=== PATIENT | female | born 1995 | race Caucasian/White ===

== ENCOUNTER 2018-11-22 13:50 | Inpatient (IN) ==
[2018-11-22 17:54] LABS: URINE SOURCE CLEAN CATCH
[2018-11-22] MEDS ORDERED: SINEMET 25/100 PO PRN (18:04)
[2018-11-22] MEDS ORDERED: ZOFRAN IV PRN (18:04)
[2018-11-22] MEDS ORDERED: DESYREL PO PRN (18:04)
[2018-11-22] MEDS ORDERED: TYLENOL PO PRN (18:04)
[2018-11-22] MEDS ORDERED: IMODIUM PO PRN (18:04)
[2018-11-22] MEDS ORDERED: LIBRIUM PO PRN (18:04)
[2018-11-22] MEDS ORDERED: PHENOBARBITAL IV PRN (18:04)
[2018-11-22] MEDS ORDERED: ATARAX PO PRN (18:04)
[2018-11-22] MEDS ORDERED: D5W 1,000 ML IV PRN (18:04)
[2018-11-22] MEDS ORDERED: SENOKOT PO PRN (18:04)
[2018-11-22] MEDS ORDERED: BENTYL PO PRN (18:04)
[2018-11-22] MEDS ORDERED: MOTRIN PO PRN (18:04)
[2018-11-22] MEDS ORDERED: TUBERSOL ID ONE (18:04)
[2018-11-22] MEDS ORDERED: NICODERM PATCH TD PRN (18:04)
[2018-11-22] MEDS ORDERED: ZOFRAN ODT PO PRN (18:04)
[2018-11-22] MEDS ORDERED: ROBAXIN PO PRN (18:04)
[2018-11-22] MEDS ORDERED: MAALOX PLUS LIQUID PO PRN (18:04)
[2018-11-22] MEDS ORDERED: DULCOLAX PR PRN (18:04)
[2018-11-22 18:26] LABS: UR BARBITUATES QUAL PRESUMPTIVE POSITIVE (NONE DETECT); UR BENZODIAZEPIN QUAL PRESUMPTIVE POSITIVE (NONE DETECT); UR CANNABINOIDS QUAL PRESUMPTIVE POSITIVE (NONE DETECT); UR COCAINE QUAL PRESUMPTIVE POSITIVE (NONE DETECT); UR OPIATES QUAL PRESUMPTIVE POSITIVE (NONE DETECT)
[2018-11-22 18:27] LABS: UR AMPHETAMINES QUAL NONE DETECTED (NONE DETECT); UR METHADONE QUAL NONE DETECTED (NONE DETECT); UR METHAMPHETAMINE QUAL NONE DETECTED (NONE DETECT); UR OXYCODONE QUAL NONE DETECTED (NONE DETECT); UR PCP QUAL NONE DETECTED (NONE DETECT); UR PROPOXYPHENE QUAL NONE DETECTED (NONE DETECT); UR TCA QUAL NONE DETECTED (NONE DETECT)
[2018-11-22 18:43] LABS: BILIRUBIN URINE NEGATIVE (NEGATIVE); BLOOD URINE NEGATIVE (NEGATIVE); CLARITY VERY CLOUDY (CLEAR); COLOR YELLOW; GLUCOSE URINE NEGATIVE (NEGATIVE); KETONE URINE NEGATIVE (NEGATIVE); LEUKOCYTES URINE 1+ (NEGATIVE); NITRITE URINE POSITIVE (NEGATIVE); PH URINE 6.5; PROTEIN URINE NEGATIVE (NEGATIVE); UROBILINOGEN URINE NORMAL
[2018-11-22 18:56] LABS: URINE BACTERIA 4+ /HFP; URINE CAST NONE SEEN /LPF; URINE CRYSTAL NONE SEEN /HPF; URINE EPITHELIAL CELLS >10 /HPF (<10); URINE YEAST NONE SEEN /HPF
[2018-11-22] MEDS ORDERED: M.V.I.-12 10 ML, FOLIC ACID 1 MG, MAGNESIUM SULFATE 1 GM, THIAMINE 100 MG in NS 1,000 ML IV ONE (19:00)
[2018-11-22 19:12] LABS: HEMATOCRIT 37.8 % (37.0-47.0); HEMOGLOBIN 12.1 g/dL (12.0-16.0); MCH 26.3 PG (27-31); MCV 82.2 FL (81-99); MPV 12.2 FL (7.4-10.4); RBC 4.6 XMIL (4.2-5.4); RDW 14.7 % (11.5-14.5); WBC 8.6 X1000 (4.8-10.8)
[2018-11-22 19:29] LABS: INR 0.9; PROTIME 12.6 Seconds (11.0-16.0)
[2018-11-22 19:30] LABS: AMYLASE 23 U/L (20-200); LIPASE 22 U/L (13-60)
[2018-11-22 19:36] LABS: AGAP 10; ALBUMIN 3.5 g/dL (3.5-5.0); ALKALINE PHOSPHATASE 92 U/L (32-104); BUN 8 mg/dL (8-22); CALCIUM 9.3 mg/dL (8.8-10.2); CHLORIDE 105 mmol/L (98-107); COSMO 282; CREATININE 0.7 mg/dL (0.5-0.9); ESTIMATED GFR > 60; GLUCOSE 103 mg/dL (70-104); GOT 13 U/L (10-30); GPT 10 U/L (10-36); SODIUM 142 mmol/L (136-145); TCO2 27 mmol/L (25-35); TOTAL BILIRUBIN < 0.15 mg/dL (0.20-1.00); TOTAL PROTEIN 7.6 g/dL (6.3-8.3)
[2018-11-22] MEDS ORDERED: SUBOXONE 2 MG/0.5 MG FILM SL SCH (20:00)
[2018-11-22] MEDS: SEROQUEL PO PRN (21:30)
--- NOTE | 2018-11-23 00:38 | HISTORY AND PHYSICAL ---
CHIEF COMPLAINT: Nausea, vomiting. HISTORY OF PRESENT ILLNESS: Patient is a 22-year-old female who presented to the [facility] [place] [facility] with nausea, vomiting, abdominal pain, myalgias. Notes that she has been abusing opiates. She has been trying to stop, symptoms become too severe. PAST MEDICAL HISTORY: Significant for chronic anxiety, depression, chronic neuropathy with restless leg. ALLERGIES: No known drug allergies. MEDICATIONS: Klonopin 0.5 mg daily p.r.n., gabapentin 600 mg 3 times daily. FAMILY HISTORY: Noncontributory. REVIEW OF SYSTEMS: CINA score is 13 secondary to nausea, vomiting, diaphoresis, myalgias, restless legs, temperature changes, abdominal cramping, diarrhea. Denies constipation, melena, hematochezia. Denies any fevers or chills. Denies dysuria, urinary frequency, urgency, hesitancy. SOCIAL HISTORY: Patient is single. She is unemployed. Lives at home [*] SUBSTANCE ABUSE HISTORY: Patient was in recovery in 2018. Started marijuana at age 12, currently smokes every day or 2. Started depressants 2 years ago, has been taking as prescribed. Started smoking at age 12, currently smokes a pack a day. Started opiates at age 21, currently using heroin and snorting oxycodone everyday. PHYSICAL EXAMINATION: VITAL SIGNS: Reviewed and stable. GENERAL: Patient is awake, alert, oriented. Currently in no respiratory distress. HEENT: Normocephalic. NECK: Supple. CARDIOVASCULAR: Regular rate. No murmurs. CHEST: Clear and nonlabored. ABDOMEN: Soft, nondistended. EXTREMITIES: Moves all extremities. NEUROLOGIC: No focal changes. SKIN: Warm, dry. No rashes. ASSESSMENT: 1. Nausea and vomiting. 2. Abdominal pain. 3. Myalgias. 4. Paresthesias. 5. Paroxysmal sweating. 6. Opiate abuse, withdrawal and stabilization. PLAN: We will continue patient in the hospital. Continue counseling. Place on Suboxone. Further orders as needed. cc: Francois Griffith MD
[2018-11-23] MEDS: PROTONIX PO SCH (06:24)
[2018-11-23] MEDS: THERA M PLUS PO SCH (08:42)
[2018-11-23] MEDS: FOLIC ACID PO SCH (08:42)
[2018-11-23] MEDS: VITAMIN B-1 PO SCH (08:42)
--- NOTE | 2018-11-23 15:15 | PROGRESS NOTE ---
DATE: 11/23/2018 SUBJECTIVE: The patient overall notes that she is feeling a little bit better, still having muscle aches, still is not back to her baseline. OBJECTIVE: She is afebrile. Temperature 97.6 degrees, pulse 64, respiratory rate 20, blood pressure 124/72.General: The patient is awake and alert. She is pleasant to talk with. HEENT: Normocephalic. Neck: Supple. CARDIOVASCULAR: Regular rate. No murmurs. Chest: Clear and nonlabored. Abdomen: Soft. Extremities: Moves all extremities. Neurologic: No changes. ASSESSMENT: 1. Nausea and vomiting. 2. Abdominal pain. 3. Myalgias. 4. Paresthesias. 5. Paroxysmal sweating. 6. Opiate abuse withdrawal and stabilization. PLAN: Will continue Suboxone. Will taper as tolerated. It is possible that she has a urinary tract infection. We have sent for a culture and will treat if positive. cc: Francois Griffith MD
[2018-11-23] MEDS: SUBOXONE 2 MG/0.5 MG FILM SL SCH (19:45)
[2018-11-23] MEDS: SEROQUEL PO PRN (19:46)
[2018-11-24] MEDS: PROTONIX PO SCH (06:35)
[2018-11-24 08:04] VITALS: BP 111/72
[2018-11-24] MEDS: SUBOXONE 2 MG/0.5 MG FILM SL SCH (08:48)
[2018-11-24] MEDS: THERA M PLUS PO SCH (08:49)
[2018-11-24] MEDS: VITAMIN B-1 PO SCH (08:49)
[2018-11-24] MEDS: FOLIC ACID PO SCH (08:49)
[2018-11-24] MEDS ORDERED: SUBOXONE 2 MG/0.5 MG FILM SL SCH (21:00)
--- NOTE | 2018-11-25 02:22 | DISCHARGE SUMMARY ---
ADMISSION DATE: 11/22/2018 DISCHARGE DATE: 11/24/2018 DISCHARGE DIAGNOSIS: 1. Nausea, vomiting. 2. Abdominal pain. 3. Myalgias. 4. Paresthesias. 5. Paroxysmal sweating. 6. Substance use and abuse. 7. Chronic anxiety, depression. CONSULTATIONS: None. PROCEDURES: None. BRIEF HOSPITAL COURSE: Patient is a 22-year-old female who presented to [facility] program secondary to nausea, vomiting, abdominal pain, myalgias, tremors, opiate abuse and withdrawal. The patient was admitted to the hospital, treated in the usual fashion, placed on symptomatic medications as well as Suboxone. Thankfully, on discharge she has had no further complications. She has tolerated the 4 mg Suboxone quite well. DISPOSITION: Patient will be discharged home. Discussed with her the importance of trying to stay as low on Suboxone as possible. Currently, she is tolerating 4 mg twice daily. We will continue this at home. Discussed with patient that she needs to avoid all persons, places and situations which she has been using and abusing in the past. She needs outpatient life counseling as well as drug counseling. Greater than 30 minutes was spent in total care. cc: Francois Griffith MD
== END 2018-11-24 13:15 | disposition home or self-care (01) | DRG 897 ==
LOC: P.DIRADM 16:09 → P.MEDSURG 16:44
PROVIDERS: ADMIT Family Medicine; ATTEND Family Medicine
CPT/HCPCS: 80053; 80104; 80301; 80305; 80307; 80320; 81001; 82055; 82150; 83690; 84703; 85027; 85610; 87077; 87088; 87186; A9270; G0431; G0434; G0477; G0480; G6040; J3411; J3475; J7030

== ENCOUNTER 2018-12-10 15:40 | Inpatient (IN) ==
[2018-12-10] MEDS ORDERED: MAALOX PLUS LIQUID PO PRN (15:47)
[2018-12-10] MEDS ORDERED: LIBRIUM PO PRN (15:47)
[2018-12-10] MEDS ORDERED: SENOKOT PO PRN (15:47)
[2018-12-10] MEDS ORDERED: BENTYL PO PRN (15:47)
[2018-12-10] MEDS ORDERED: DESYREL PO PRN (15:47)
[2018-12-10] MEDS ORDERED: ATARAX PO PRN (15:47)
[2018-12-10] MEDS ORDERED: ZOFRAN IV PRN (15:47)
[2018-12-10] MEDS ORDERED: TYLENOL PO PRN (15:47)
[2018-12-10] MEDS ORDERED: MOTRIN PO PRN (15:47)
[2018-12-10] MEDS ORDERED: DULCOLAX PR PRN (15:47)
[2018-12-10] MEDS ORDERED: NICODERM PATCH TD PRN (15:47)
[2018-12-10] MEDS ORDERED: IMODIUM PO PRN (15:47)
[2018-12-10] MEDS ORDERED: D5W 1,000 ML IV PRN (15:47)
[2018-12-10] MEDS ORDERED: PHENOBARBITAL IV PRN (15:47)
[2018-12-10] MEDS ORDERED: SINEMET 25/100 PO PRN (15:47)
[2018-12-10] MEDS ORDERED: ZOFRAN ODT PO PRN (15:47)
[2018-12-10] MEDS ORDERED: TUBERSOL ID ONE (17:00)
[2018-12-10 18:49] LABS: HEMATOCRIT 36.4 % (37.0-47.0); HEMOGLOBIN 11.5 g/dL (12.0-16.0); MCHC 31.6 g/dL (33-37); MCV 82.2 FL (81-99); MPV 11.5 FL (7.4-10.4); RBC 4.43 XMIL (4.2-5.4); RDW 14.1 % (11.5-14.5); WBC 8.53 X1000 (4.8-10.8)
[2018-12-10 19:03] LABS: INR 0.89; PROTIME 12.5 Seconds (11.0-16.0)
[2018-12-10 19:13] LABS: AMYLASE 25 U/L (20-200); LIPASE 32 U/L (13-60)
[2018-12-10 19:36] LABS: AGAP 9; ALBUMIN 3.6 g/dL (3.5-5.0); ALKALINE PHOSPHATASE 89 U/L (32-104); BUN 11 mg/dL (8-22); CALCIUM 9.2 mg/dL (8.8-10.2); CHLORIDE 103 mmol/L (98-107); COSMO 278; CREATININE 0.7 mg/dL (0.5-0.9); ESTIMATED GFR > 60; GLUCOSE 92 mg/dL (70-104); GOT 13 U/L (10-30); GPT 10 U/L (10-36); POTASSIUM 3.8 mmol/L (3.5-5.1); SODIUM 140 mmol/L (136-145); TCO2 28 mmol/L (25-35); TOTAL BILIRUBIN < 0.15 mg/dL (0.20-1.00); TOTAL PROTEIN 7.1 g/dL (6.3-8.3)
[2018-12-10] MEDS: SUBOXONE 2 MG/0.5 MG FILM SL SCH (19:45)
[2018-12-10 23:10] LABS: URINE SOURCE VOIDED
[2018-12-10 23:18] LABS: BILIRUBIN URINE NEGATIVE (NEGATIVE); BLOOD URINE NEGATIVE (NEGATIVE); CLARITY SL. CLOUDY (CLEAR); COLOR YELLOW; GLUCOSE URINE NEGATIVE (NEGATIVE); KETONE URINE NEGATIVE (NEGATIVE); LEUKOCYTES URINE NEGATIVE (NEGATIVE); NITRITE URINE NEGATIVE (NEGATIVE); PROTEIN URINE NEGATIVE (NEGATIVE); SP GRAVITY URINE 1.015; UROBILINOGEN URINE NORMAL
[2018-12-10 23:29] LABS: UR AMPHETAMINES QUAL NONE DETECTED (NONE DETECT); UR BARBITUATES QUAL NONE DETECTED (NONE DETECT); UR BENZODIAZEPIN QUAL PRESUMPTIVE POSITIVE (NONE DETECT); UR CANNABINOIDS QUAL PRESUMPTIVE POSITIVE (NONE DETECT); UR COCAINE QUAL PRESUMPTIVE POSITIVE (NONE DETECT); UR METHADONE QUAL NONE DETECTED (NONE DETECT); UR METHAMPHETAMINE QUAL NONE DETECTED (NONE DETECT); UR OPIATES QUAL NONE DETECTED (NONE DETECT); UR OXYCODONE QUAL NONE DETECTED (NONE DETECT); UR PCP QUAL NONE DETECTED (NONE DETECT); UR PROPOXYPHENE QUAL NONE DETECTED (NONE DETECT); UR TCA QUAL NONE DETECTED (NONE DETECT)
[2018-12-10 23:34] LABS: URINE BACTERIA 4+ /HFP; URINE EPITHELIAL CELLS >10 /HPF (<10); URINE RBC <10 /HPF (<10)
[2018-12-11] MEDS: SEROQUEL PO PRN ×2 (02:17→20:33)
[2018-12-11] MEDS: ROBAXIN PO PRN ×2 (02:17→20:33)
[2018-12-11] MEDS: PROTONIX PO SCH (06:25)
[2018-12-11] MEDS: SUBOXONE 2 MG/0.5 MG FILM SL SCH ×2 (06:25→18:59)
[2018-12-11] MEDS: THERA M PLUS PO SCH (10:51)
[2018-12-11] MEDS: FOLIC ACID PO SCH (10:51)
[2018-12-11] MEDS: VITAMIN B-1 PO SCH (10:51)
[2018-12-12] MEDS: PROTONIX PO SCH (06:16)
[2018-12-12] MEDS: SUBOXONE 2 MG/0.5 MG FILM SL SCH (06:16)
--- NOTE | 2018-12-12 07:51 | PROGRESS NOTE ---
DATE: 12/11/2018 SUBJECTIVE: Patient states overall, she is feeling a little bit better, less nausea, still having abdominal pain and muscle aches. Denies any dysuria or urinary frequency. Denies fevers. Does have frequent chills. PHYSICAL EXAMINATION: Vital Signs: Temperature 97.5, pulse 80, respiratory rate 20, BP 102/59. General: Patient is awake, alert, and currently in no respiratory distress. HEENT: Normocephalic. Neck: Supple. Cardiovascular: Regular rate. No murmurs. Chest: Clear and nonlabored. Abdomen: Soft and nondistended. Extremities: Moves all extremities. Neurologic: No focal changes. Skin: Warm, dry. No rashes. ASSESSMENT: 1. Nausea and vomiting. 2. Abdominal pain. 3. Paresthesias. 4. Paroxysmal sweating. 5. Opiate abuse, withdrawal, and stabilization. PLAN: Continue patient in the hospital. Continue Suboxone. Continue counseling. Further orders as needed. cc: Francois Griffith MD MTDD
--- NOTE | 2018-12-12 08:15 | HISTORY AND PHYSICAL ---
CHIEF COMPLAINT: Nausea, vomiting. HISTORY OF PRESENT ILLNESS: The patient is a 23-year-old female who presented to [facility] secondary to nausea, vomiting, abdominal pain, tremors, and myalgias. She states she has been using and abusing opiates, and has been trying to stop, but her withdrawal symptoms become too severe. SOCIAL HISTORY: The patient is single. She is unemployed, lives at home in [place]. PAST MEDICAL HISTORY: Chronic anxiety. MEDICATIONS: Klonopin 0.5 at bedtime. ALLERGIES: No known drug allergies. REVIEW OF SYSTEMS: CINA score is elevated at 17 secondary to frequent nausea and vomiting, frequent runny nose and watery eyes, myalgias, feeling tired and fatigued, diarrhea, abdominal cramping and pain, frequent temperature changes, hot and cold sweating, and frequent muscle aches. Denies any dysuria, frequency, or urgency. Denies melena, hematochezia, or hematuria. Denies constipation. Denies headaches, blurred vision, or change in vision. Denies any focalized numbness, tingling, or weakness in her extremities. SUBSTANCE ABUSE HISTORY: The patient was in [facility] in 2018. She was in [facility] earlier this year for 4 days, in 2019, however, notes she was really not ready at the moment and immediately started using upon discharge at both of these events. States each of those 2 times, she did not take her recovery seriously and now has been more serious. Started marijuana at age 12, currently uses every day. Started Klonopin on a few years ago, currently takes only as prescribed. Started opiates at age 21. She has gone back to snorting heroin and using oxycodone daily. Started smoking at age 12, currently smokes a pack a day. FAMILY HISTORY: Noncontributory. PHYSICAL EXAMINATION: VITAL SIGNS: Reviewed and stable. GENERAL: The patient is awake and alert. She is in obvious withdrawal symptoms, but in no respiratory distress. HEENT: Normocephalic. NECK: Supple. CARDIOVASCULAR: Regular rate. No murmurs. CHEST: Clear and nonlabored. ABDOMEN: Soft and nondistended. EXTREMITIES: Moves all extremities. NEUROLOGIC: The patient is awake, alert, and oriented. No focal changes. ASSESSMENT: 1. Nausea and vomiting. 2. Abdominal pain. 3. Myalgias. 4. Paresthesias. 5. Paroxysmal sweating. 6. Opiate abuse, withdrawal, and stabilization. 7. Chronic anxiety. 8. Chronic tobacco abuse. PLAN: We will admit the patient to the hospital, place her on Suboxone, and begin counseling. I expect she will need to go home on counseling with outpatient therapy and will follow. cc: Francois Griffith MD
[2018-12-12] MEDS: VITAMIN B-1 PO SCH (09:04)
[2018-12-12] MEDS: THERA M PLUS PO SCH (09:04)
[2018-12-12] MEDS: FOLIC ACID PO SCH (09:04)
[2018-12-12] MEDS: SUBOXONE 8 MG/2 MG FILM SL SCH ×2 (09:17→21:13)
--- NOTE | 2018-12-12 17:55 | PROGRESS NOTE ---
DATE: 12/12/2018 SUBJECTIVE: The patient notes she still feels bad, still having muscle aches. Nausea is improved. She tolerated breakfast well this morning. However, did not sleep well last night. Still having lots of chills and muscle aches. Vital signs reviewed and stable. Patient is awake, alert. She is in no current respiratory distress. PHYSICAL EXAMINATION: Vital signs: Temperature 97.4, pulse 64, respiratory rate 18, BP 117/84. General: Patient overall has improved, but is still not back to her baseline. HEENT: Normocephalic. Neck: Supple. CARDIOVASCULAR: Regular rate. No murmurs. Chest: Clear and unlabored. Abdomen: Soft, nondistended. Extremities: Moves all extremities. Neurologic: No focal changes. ASSESSMENT: 1. Nausea/vomiting. 2. Abdominal pain. 3. Myalgias. 4. Paresthesias. 5. Paroxysmal sweating. 6. Opiate abuse, withdrawal, and stabilization. PLAN: We will continue patient in the hospital, although we will increase her Suboxone to 8/2. We will see how she does today. If she tolerates this, then hopefully we can discharge her home tomorrow on 8/2 twice a day. cc: Francois Griffith MD
[2018-12-12] MEDS: ROBAXIN PO PRN (21:28)
[2018-12-12] MEDS: SEROQUEL PO PRN (21:28)
[2018-12-13] MEDS: PROTONIX PO SCH (06:22)
[2018-12-13 07:44] VITALS: BP 119/66
[2018-12-13] MEDS: FOLIC ACID PO SCH (09:05)
[2018-12-13] MEDS: THERA M PLUS PO SCH (09:05)
[2018-12-13] MEDS: SUBOXONE 8 MG/2 MG FILM SL SCH (09:05)
[2018-12-13] MEDS: VITAMIN B-1 PO SCH (09:05)
--- NOTE | 2018-12-15 21:01 | DISCHARGE SUMMARY ---
ADMISSION DATE: 12/10/2018 DISCHARGE DATE: 12/13/2018 DISCHARGE DIAGNOSIS: 1. Nausea, vomiting. 2. Abdominal pain . 3. Myalgias. 4. Opiate abuse withdrawal and admit for stabilization. CONSULTATIONS: None. PROCEDURES: None. BRIEF HOSPITAL COURSE: Patient is a 23-year-old female who presented to [facility] secondary to nausea, vomiting, abdominal pain as well as opiate abuse withdrawal. The patient has been trying to stop at home but her symptoms become too severe. She was admitted, placed on Suboxone, tolerated very well, Suboxone was slowly increased to 8/2 which alleviated all her withdrawal symptoms and made her feel back to normal. DISPOSITION: Patient will be discharged home, discussed her that she needs to avoid all persons, places, situations which she has been using abusing in the past. She needs outpatient life counseling as well as drug counseling. She will follow up outpatient with treatment facility of choice. Greater than 30 minutes was spent in total care. cc: Francois Griffith MD
== END 2018-12-13 09:48 | disposition home or self-care (01) | DRG 897 ==
LOC: P.DIRADM 15:42 → P.MEDSURG 15:55
PROVIDERS: ADMIT Family Medicine; ATTEND Family Medicine
CPT/HCPCS: 80053; 80104; 80301; 80305; 80307; 80320; 81001; 82055; 82150; 83690; 84703; 85027; 85610; A9270; G0431; G0434; G0477; G0480; G6040